=== PATIENT | male | born 1990 | race Caucasian/White ===

== ENCOUNTER 2017-05-12 15:06 | Inpatient (IN) | payer OTHER ==
[~2017-05-12] VITALS: Ht 177.8 cm; Wt 81.6 kg
[2017-05-12 15:21] VITALS: BP 128/88
[2017-05-12] MEDS ORDERED: DEPER500 PO (15:25)
[2017-05-12] MEDS ORDERED: OLAN10TA1 PO (15:25)
--- NOTE | 2017-05-12 15:40 | NUR ---
PT BIBA FROM HOME ON 5150 HOLD. HX SCHIZOPHRENIA AND BIPOLAR DISORDER. HX; SCHIZOPHRENIA, BIPOLAR; DENIES N/V/D; SKIN IS PINK/WARM/DRY; AAOX4 WITH EVEN AND STEADY GAIT; LUNGS CLEAR BL; HR EVEN AND REGULAR; PT DENIES ANY FEVER, CP, SOB, OR COUGH AT THIS TIME; PATIENT STATES PAIN OF 0/10 AT THIS TIME; VSS; PATIENT POSITIONED FOR COMFORT; HOB ELEVATED; BEDRAILS UP X2; BED DOWN. ER MD MADE AWARE OF PT STATUS.
[2017-05-12 15:56] LABS: BASOPHILS # (AUTO) 0.2 K/uL (0.00-0.22); BASOPHILS % (AUTO) 2.3 % (0.0-2.0); EOSINOPHILS # (AUTO) 0.1 K/uL (0-0.4); EOSINOPHILS % (AUTO) 0.7 % (0.0-4.0); HEMATOCRIT 40.8 % (36-52); HEMOGLOBIN 13.6 g/dL (12.0-18.0); LYMPHOCYTES # (AUTO) 1.7 K/uL (2.0-11.5); LYMPHOCYTES % (AUTO) 22.9 % (20.5-51.1); MEAN CORPUSCULAR HEMOGLOBIN 30 pg (27-31); MEAN CORPUSCULAR HGB CONC 33 g/dL (33-37); MEAN CORPUSCULAR VOLUME 89 fL (80-94); MONOCYTES # (AUTO) 0.8 K/uL (0.8-1.0); MONOCYTES % (AUTO) 10.6 % (1.7-9.3); NEUTROPHILS # (AUTO) 4.8 K/uL (1.8-7.7); NEUTROPHILS % (AUTO) 63.5 % (42.2-75.2); PLATELET COUNT (AUTO) 220 K/uL (140-450); RED BLOOD CELL COUNT(AUTO) 4.58 MIL/uL (4.20-6.10); RED CELL DISTRIBUTION WIDTH 12.7 % (11.6-13.7); WHITE BLOOD COUNT (AUTO) 7.6 K/uL (4.8-10.8)
[2017-05-12 15:58] LABS: ANION GAP 13.3 (8-16); CALCIUM 8.2 mg/dL (8.5-10.1); CARBON DIOXIDE 28.4 mmol/L (21-32); CHLORIDE 104 mmol/L (98-107); CREATININE 1.1 mg/dL (0.7-1.3); GFR ARICAN-AMERICAN 103 mL/min (>90); GFR NON ARICAN-AMERICAN 85 mL/min (>90); GLUCOSE 96 mg/dL (74-106); POTASSIUM 3.7 mmol/L (3.5-5.1); SODIUM SERUM 142 mmol/L (136-145); UREA NITROGEN, BLOOD 13 mg/dL (7-18)
[2017-05-12 16:05] LABS: ALANINE AMINOTRANSFERASE 25 U/L (16-63); ALBUMIN 3.9 g/dL (3.4-5.0); ALKALINE PHOSPHATASE 58 U/L (46-116); ASPARTATE AMINOTRANSFERASE 13 U/L (15-37); TOTAL BILIRUBIN 0.5 mg/dL (0.0-1.0); TOTAL PROTEIN, SERUM 6.8 g/dL (6.4-8.2)
[2017-05-12 16:06] LABS: SALICYLATE < 2.8 mg/dL (2.8-20.0)
[2017-05-12 16:07] LABS: ACETAMINOPHEN < 0.5 ug/ml (10-30); ALCOHOL, BLOOD < 3 mg/dL (<3)
[2017-05-12 16:11] LABS: APPEARANCE,URINE CLEAR (CLEAR); BILIRUBIN,URINE NEGATIVE (NEGATIVE); BLOOD, URINE NEGATIVE (NEGATIVE); COLOR,URINE YELLOW (YELLOW); LEUKOCYTE ESTERASE ,URINE NEGATIVE (NEGATIVE); NITRITE, URINE NEGATIVE (NEGATIVE); PH,URINE 6.5 (5.0-9.0); PROTEIN,URINE NEGATIVE (NEGATIVE); UGLUCOSE NEGATIVE (NEGATIVE); UROBILINOGEN,URINE 0.2 EU/dL (0.2 - 1)
[2017-05-12 16:17] LABS: AMPHETAMINE, URINE NEG. ng/ml (NEG <=1000); BARBITURATE, URINE NEG. ng/ml (NEG <=200); BENZODIAZEPINE, URINE NEG. ng/mL (NEG <=200); CANNABINOID, URINE POS. ng/mL (NEG <=50); COCAINE, URINE NEG. ng/mL (NEG <=300); OPIATE, URINE NEG. ng/mL (NEG <=2000); PHENCYCLIDINE SCREEN,URINE NEG. ng/mL (NEG <=25)
[2017-05-12] MEDS ORDERED: ONDANSETRON 4 MG/2 ML VIAL IVP PRN (17:00)
[2017-05-12] MEDS ORDERED: LORazepam 2 MG/ML VIAL IVP PRN (17:00)
[2017-05-12] MEDS ORDERED: ACETAMINOPHEN 325 MG TAB PO PRN (17:00)
--- NOTE | 2017-05-12 17:01 | NUR ---
RN UNAVAILABLE FOR REPORT AT THIS TIME
--- NOTE | 2017-05-12 17:45 | NUR ---
Patient will be admitted to care of DR STOLL. Admited to TELE. Will go to room 107. Belongings list completed. Report to KAZ BELL.
[2017-05-12 18:00] VITALS: BP 140/75
--- NOTE | 2017-05-12 18:00 | NUR ---
PT ARRIVED ON UNIT WITH 2 ER NURSES. PT IS 5150. HAS SOFT WRIST RESTRAINTS. V/S WITHIN NORMAL RANGE. IV R AC 20G SL. SKIN IS INTACT. PT IS ALERT AND ORIENTED. INTRODUCED MYSELF AND UPDATED THE BOARD. MRSA SCREENING DONE. V/S WITHIN NORMAL RANGE. NO ORDERS OF YET. WILL ENDORSE ADMISSION TO MARINE RIGGER.
--- NOTE | 2017-05-12 18:56 | NUR ---
REMOVED WRIST RESTRAINTS. PT HAD TO USE THE BATHROOM. PT HUNGRY. GAVE HIM A HAM SANDWICH AND A CHICKEN SALAD SANDWICH AND 2 JUICE BOXES. PT TOLERATED WELL. SITTER IN THE ROOM.
--- NOTE | 2017-05-12 19:20 | NUR ---
ENDORSED PT TO THE RECLAMATION ENGINEER NURSE AT BEDSIDE FOR CONTINUITY OF CARE. PT IN STABLE CONDITION. NO RESTRAINTS. DR. MARTINEZ CAME TO SEE PT.
--- NOTE | 2017-05-12 19:21 | NUR ---
Admitted from ER TO MED SURGICAL UNIT , with chief complaint of ALOC, THREATENING MOTHER PER REPORT, 5150 ON HOLD 26 y/o ,Male, Suspicious, AWAKE, A/OX4, SEEMS PARANOID BUT ANSWERS QUESTIONS. RESPIRATION EVEN AND UNLABORED. AMBULATORY TO BR. COMFORTABLY SITTING ON CHAIR, WATCHING TV. DENIES PAIN 0/10.oriented to call light, bed, phone,television, bathroom, smoking policy,visiting hours, procedures, ID bracelet on. Belongings list checked. WILL CONTINUE TO MONITOR BEHAVIOR AND ENSURE SAFETY BEING THE 1:1 NURSE SITTER THIS SHIFT.
--- NOTE | 2017-05-12 19:35 | NUR ---
DR. MARTINEZ CAME INSIDE ROOM AND SPOKE WITH PATIENT.
[2017-05-12 20:00] VITALS: BP 136/72
--- NOTE | 2017-05-12 20:00 | NUR ---
Patient's Plan of Care was discussed and reviewed with UTILIZATION MANAGER: ANA ROSA SOLOMON
--- NOTE | 2017-05-12 20:05 | NUR ---
DR. MARTINEZ RECOMMENDS TRANSFER TO IN PATIENT PSYCHE FACILITY WHEN MEDICALLY CLEARED, MEET 5150 CRITERIA AT THIS TIME.
--- NOTE | 2017-05-12 20:30 | NUR ---
SEEMS TO FALL FROM CHAIR, DROWSY. SUGGESTED TO GO BACK TO BED AND REST. OBEYED.
[2017-05-12] MEDS ORDERED: OLANZAPINE PO SCH (21:00)
--- NOTE | 2017-05-12 21:03 | NUR ---
PT CALLED ASKING FOR SLEEPING PILL AND ALSO SHE WANTS HER MEDINA CATHETER OUT. WILL YOVANI SEPULVEDA. Addendum: 05/12/17 at 2112 by Opal Morales RN WRONG DOCUMENTATION
[2017-05-12] MEDS: DIVALPROEX 500 MG TABER PO SCH (21:13)
[2017-05-12] MEDS: OLANZapine 5 MG TAB PO SCH (21:13)
--- NOTE | 2017-05-12 21:13 | NUR ---
DUE PO MEDICATIONS GIVEN, COOPERATIVE.
--- NOTE | 2017-05-12 21:30 | NUR ---
AMBULATED TO BR, BACK TO BEDSIDE TABLE AND DRINK WATER FROM THE PITCHER. STAND FACING DOOR OF BR WITH ONE BLANKET COVERING HIM, SEEMS TO BE LOOKING DOWN FOR 10 MINUTES, ADVISED TO GO TO BED DUE TO MEDICATIONS GIVEN MAY FEEL DIZZY. OBEYED AND LAY DOWN IN BED.
--- NOTE | 2017-05-12 22:10 | NUR ---
AMBULATED TO TO VOID. BACK TO BED AFTER VOIDING. WATCH TV FOR A SHORT TIME, LAUGHED LOUD EVEN THERE'S NOTHING FUNNY.
--- NOTE | 2017-05-12 23:00 | NUR ---
SLEEPING COMFORTABLY IN BED.
--- NOTE | 2017-05-12 23:35 | NUR ---
SUDDENLY WOKE UP FROM SLEEP AND STAND UP. REORIENTED TO HOSPITAL SETTING, ADVISED TO GO BACK TO SLEEP, OBEYED.
[2017-05-13] VITALS: BP 132/68
--- NOTE | 2017-05-13 01:40 | NUR ---
WOKE UP AND STAND BESIDE BED. DENIES ANY NEED. ADVISED TO GO BACK TO BED. COMMENTED ON COLDNESS OF THE ROOM. WARM BLANKET GIVEN. WENT BACK TO SLEEP.
--- NOTE | 2017-05-13 05:40 | NUR ---
WOKE UP EARLY, TEA GIVEN REQUESTED. WATCHING TV.
--- NOTE | 2017-05-13 06:24 | NUR ---
WENT BACK TO BED AND CONTINUE DRINKING TEA WHILE WATCHING TV.
--- NOTE | 2017-05-13 06:44 | NUR ---
STILL WATCHING TV. OCCASIONALLY WITH SHARP LOOKS, OR CLENCHED FIST, OR LAUGH EVEN TV SHOW IS NOT FUNNY. CONDITION REMAIN STABLE, NO SUICIDAL IDEATION NOTED DURING SHIFT, WILL ENDORSED TO AM NURSE FOR CONTINUITY OF CARE.
[2017-05-13 06:51] LABS: HEMATOCRIT 48.2 % (36-52); HEMOGLOBIN 16.1 g/dL (12.0-18.0); MEAN CORPUSCULAR HEMOGLOBIN 30 pg (27-31); MEAN CORPUSCULAR HGB CONC 33 g/dL (33-37); MEAN CORPUSCULAR VOLUME 89 fL (80-94); PLATELET COUNT (AUTO) 252 K/uL (140-450); RED BLOOD CELL COUNT(AUTO) 5.42 MIL/uL (4.20-6.10); RED CELL DISTRIBUTION WIDTH 12.9 % (11.6-13.7); WHITE BLOOD COUNT (AUTO) 7.7 K/uL (4.8-10.8)
--- NOTE | 2017-05-13 07:10 | NUR ---
RECEIVED PATIENT REPORT AT BEDSIDE. PATIENT AWAKE AND ALERT. NO S/S OF DISTRESS NOTED. PATIENT CALM AND COOPERATIVE. PATIENT WITH 1:1 SITTER. WILL CONTINUE TO MONITOR
[2017-05-13 07:24] LABS: EOSINOPHILS % (MANUAL) 1 % (0-4); LYMPHOCYTES % (MANUAL) 44 % (20-46); MONOCYTES % (MANUAL) 13 % (5-12); NEUTROPHILS % (MANUAL) 42 (43-65)
[2017-05-13 07:33] LABS: ANION GAP 13.6 (8-16); CALCIUM 8.8 mg/dL (8.5-10.1); CREATININE 1.1 mg/dL (0.7-1.3); POTASSIUM 3.6 mmol/L (3.5-5.1)
[2017-05-13 07:39] LABS: ALBUMIN 4.5 g/dL (3.4-5.0); MAGNESIUM 2.5 mg/dL (1.8-2.4); TOTAL BILIRUBIN 0.7 mg/dL (0.0-1.0); TOTAL PROTEIN, SERUM 8.1 g/dL (6.4-8.2)
[2017-05-13 08:00] VITALS: BP 143/91
--- NOTE | 2017-05-13 09:14 | NUR ---
PATIENT HAS BEEN SCREENED AND CATEGORIZED LOW NUTRITION RISK. PATIENT WILL BE SEEN WITHIN 7 DAYS OF ADMISSION. 05/19/[address]
[2017-05-13] MEDS: DIVALPROEX 500 MG TABER PO SCH (09:20)
[2017-05-13] MEDS: OLANZapine 5 MG TAB PO SCH (09:21)
--- NOTE | 2017-05-13 09:30 | NUR ---
PATIENT SEEN BY DR LONDON
--- NOTE | 2017-05-13 10:56 | NUR ---
CM NOTE INITIAL REVIEW FAXED TO [facility] / FAX# [phone], ATTN: TONNY #[phone]
--- NOTE | 2017-05-13 13:26 | NUR ---
Social Service Note: I faxed inquiry to [facility] . Per Verito from [facility], patient has been accepted, accepting physician is and can be transfer anytime, rn case management Baoz monteiro.
--- NOTE | 2017-05-13 13:49 | NUR ---
CM NOTE PATIENT TO BE PICKED UP VIA GURNEY BY [facility] GOING TO [facility]. ETA 1600. MADE AWARE THAT PATIENT IS ON 5150 HOLD. MIKEY VYAS MADE AWARE.
--- NOTE | 2017-05-13 15:45 | NUR ---
MADE PATIENT'S MOM NADIR AWARE THAT PATIENT WILL BE TRANSFERRED TO A PSYCH FACILITY
[2017-05-13 16:00] VITALS: BP 150/95
--- NOTE | 2017-05-13 16:10 | NUR ---
PATIENT PICKED UP BY [facility] TO BE TRANSFERRED TO [facility]. IV LINE DISCONTINUED. DISCHARGE INSTRUCTIONS GIVEN. PATIENT VERBALIZED UNDERSTANDING. PATIENT LEFT IN STABLE CONDITION
[2017-05-13] MEDS ORDERED: DIVALPROEX 500 MG TABEC PO SCH (21:00)
== END 2017-05-13 16:10 | disposition designated cancer center or children's hospital (05) | DRG 750 ==
LOC: MED 15:06 → MTU 17:05
PROVIDERS: ADMIT Hospitalist; ATTEND Hospitalist
DX: F25.0 Schizoaffective disorder, bipolar type (principal); F12.10 Cannabis abuse, uncomplicated; F31.9 Bipolar disorder, unspecified
CPT/HCPCS: 36415; 80053; 80305; 81003; 83735; 85025; 87081; 99285; G0480; G0482; J2060

== ENCOUNTER 2018-04-08 09:36 | Emergency (ER) | payer OTHER ==
[~2018-04-08] VITALS: Ht 170.2 cm; Wt 99.3 kg
[~2018-04-08 09:36] MED LIST: DEPER500 PO; OLAN10TA1 PO
[2018-04-08 09:46] VITALS: BP 143/73
--- NOTE | 2018-04-08 09:50 | NUR ---
PT AMULATES TO BED 11
--- NOTE | 2018-04-08 09:51 | NUR ---
REPORT GIVEN TO KAZ BARRIENTOS
--- NOTE | 2018-04-08 09:55 | NUR ---
27YO M TO ER WITH C/O R SIDE CHEST TIGHTNESS NON-RADIATING, WITH SOB, N/V. PT STATS HAVING HIVES X3DAYS AGO WITH NIGHT SWEATS WITH POSSIBLE FEVER AND DRY COUGH . PT STATES THAT STARTING TO WORKOUT AGAIN. O2 SAT AT 100%, LS CLEAR, BS ACTIVE X4, DENIES ANY DIARRHEA. PT REPORTS SMOKING MARIJUANA YESTERDAY. DR SRINIVASAN RAMOS WILL CONTINUE TO MONITOR. WILL CONTINUE TO MONITOR MEDS: DENIES HX: CHILDHOOD ASTHMA
--- NOTE | 2018-04-08 10:00 | NUR ---
Patient being evaluated by physician at bedside.
--- NOTE | 2018-04-08 10:17 | NUR ---
XRAY AT BEDSIDE
[2018-04-08 10:44] VITALS: BP 113/66
--- NOTE | 2018-04-08 10:44 | NUR ---
Patient discharged with v/s stable. Written and verbal after care instructions given and explained. Patient alert, oriented and verbalized understanding of instructions. Ambulatory with steady gait. All questions addressed prior to discharge. ID band removed. Patient advised to follow up with PMD. Rx of AMBIEN 5MG given. Patient educated on indication of medication including possible reaction and side effects. Opportunity to ask questions provided and answered.
== END 2018-04-08 10:44 | disposition home or self-care (01) ==
LOC: MED 09:36
DX: F12.10 Cannabis abuse, uncomplicated (principal); G47.00 Insomnia, unspecified; B34.9 Viral infection, unspecified
CPT/HCPCS: 71045; 93005; 99284; Q0092

== ENCOUNTER 2018-04-22 19:57 | Emergency (ER) | payer OTHER ==
[~2018-04-22] VITALS: Ht 170.2 cm; Wt 98.7 kg
[2018-04-22 20:15] VITALS: BP 134/65
--- NOTE | 2018-04-22 20:21 | NUR ---
PT IN BED 11
--- NOTE | 2018-04-22 20:30 | NUR ---
PATIENT PRESENTS TO ED WITH PT C/O PAIN, DISCOMFORT AND SWELLING IN THE LEFT HAND. PT STATES HE RECIEVED A INSECT BITE WHILE JOGGING YESTERDAY, 04/21/18. ASSESSED REDDNESS AND SWELLING FROM FINGERS TO THE WRIST . DENIES N/V/D; SKIN IS PINK/WARM/DRY; AAOX4 WITH EVEN AND STEADY GAIT; LUNGS CLEAR BL; HR EVEN AND REGULAR; PT DENIES ANY FEVER, CP, SOB, OR COUGH AT THIS TIME; PATIENT STATES PAIN OF 7/10 AT THIS TIME; VSS; PATIENT POSITIONED FOR COMFORT; HOB ELEVATED; BEDRAILS UP X2; BED DOWN. ER MD MADE AWARE OF PT STATUS.PT HAS NO KNOWN ALLERGIES OF BEES OR INSECTS.
--- NOTE | 2018-04-22 22:00 | NUR ---
PATIENT IS RESTING IN BED
--- NOTE | 2018-04-22 22:20 | NUR ---
IS WITH PATIENT
[2018-04-22 22:49] VITALS: BP 126/89
--- NOTE | 2018-04-22 22:49 | NUR ---
Patient discharged with v/s stable. Written and verbal after care instructions given and explained. Patient alert, oriented and verbalized understanding of instructions. Ambulatory with steady gait. All questions addressed prior to discharge. ID band removed. Patient advised to follow up with PMD. Rx of IBUPROFEN, KEFLEX,PEPCID,PREDNISONE given. Patient educated on indication of medication including possible reaction and side effects. Opportunity to ask questions provided and answered
== END 2018-04-22 22:49 | disposition home or self-care (01) ==
LOC: MED 19:57
DX: T63.481A Toxic effect of venom of other arthropod, accidental (unintentional), initial encounter (principal); L03.114 Cellulitis of left upper limb; Z79.899 Other long term (current) drug therapy; Y92.89 Other specified places as the place of occurrence of the external cause
CPT/HCPCS: 99283

== ENCOUNTER 2020-01-16 23:55 | Emergency (ER) | payer MEDICAID, OTHER ==
[~2020-01-16] VITALS: Ht 170.2 cm; Wt 99.8 kg
--- NOTE | 2020-01-17 00:02 | NUR ---
PT [facility] B[facility]. TAKEN TO BED 8
[2020-01-17 00:03] VITALS: BP 153/69
--- NOTE | 2020-01-17 00:10 | NUR ---
Dr. Rojas examining patient.
[2020-01-17] MEDS ORDERED: LORazepam 2 MG/ML VIAL IM ONE (00:15)
[2020-01-17 00:30] LABS: BARBITURATE, URINE NEGATIVE ng/ml (NEG <=200); BENZODIAZEPINE, URINE NEGATIVE ng/mL (NEG <=200); CANNABINOID, URINE POSITIVE ng/mL (NEG <=50); COCAINE, URINE NEGATIVE ng/mL (NEG <=300); OPIATE, URINE NEGATIVE ng/mL (NEG <=2000); PHENCYCLIDINE SCREEN,URINE NEGATIVE ng/mL (NEG <=25)
--- NOTE | 2020-01-17 00:47 | NUR ---
29 YO MALE BIBA FOR AUDITORY HALLUCINATIONS. PT SMOKED MARIJUANA AND DRANK BEER. PT INITIALLY DID NOT WANT TO BE SEEN, BUT DECIDED TO STAY. PT VERY ANXIOUS AND NOT ABLE TO SIT STILL. ORALIA ORDERED ATIVAN AND IT WAS ADMINISTERED VIA IM.
--- NOTE | 2020-01-17 00:51 | NUR ---
MOM CALLED TO COME GET PT.
[2020-01-17 01:12] VITALS: BP 133/69
--- NOTE | 2020-01-17 01:13 | NUR ---
Patient discharged with v/s stable. Written and verbal after care instructions given and explained. Patient verbalized understanding. Ambulatory with steady gait. All questions addressed prior to discharge. Advised to follow up with PMD.
== END 2020-01-17 01:13 | disposition home or self-care (01) ==
LOC: MED 23:55
DX: F41.9 Anxiety disorder, unspecified (principal); F20.9 Schizophrenia, unspecified; F12.90 Cannabis use, unspecified, uncomplicated; Z79.899 Other long term (current) drug therapy
CPT/HCPCS: 80305; 96372; 99283; J2060

== ENCOUNTER 2020-01-21 14:55 | Inpatient (IN) | payer MEDICAID ==
[~2020-01-21] VITALS: Ht 172.7 cm; Wt 104.3 kg
[2020-01-21 14:56] VITALS: BP 164/86
--- NOTE | 2020-01-21 15:00 | NUR ---
PT DISPLAYING HYPERSEXUAL BEHAVIOR WHILE OBTAINING VITALS, STATED TO ME "GO AHEAD, SUCK MY JAGDEEP". PT INFORMED THIS BEHAVIOR IS NOT ACCEPTABLE.
--- NOTE | 2020-01-21 15:18 | NUR ---
29/M DISPLAYING HYPERVERBAL, PARANOIA BEHAVIORS. WHEN AT BEDSIDE ASKING PT WHAT AND WHO BROUGHT HIM INTO ER TODAY, PT IMMEDIATELY CLOSED HIS EYES AND STOPPED SPEAKING. DOES NOT ANSWER ANY QUESTIONS AT THIS TIME. HOWEVER ONCE I LEFT BEDSIDE, PT RESUMED HYPERVERBAL BEHAVIOR. UNABLE TO OBTAIN ANY INFORMATION FROM PATIENT NOW EXECEPT INFORMATION FROM DENTAL SERVICE CHIEF (WHICH WAS OBTAINED FROM EMS) BELOW: 29/M BROUGHT IN BY EMS FROM [facility] PT PULLING DAVIS OUT FROM PRIVATE RESIDENCE FRONT LAWN. [facility] PD STATED PT C/O THROAT PAIN --EMS STATED PT WITH BIZZARE BEHAVIOR RANTING WANTS EVERYONE AND HYPER SEXUAL BEHAVIOR PT ADMITS TO VISUAL/AUDITORY HALLUCINATIONS DENIES HOMICIDAL/SUICIDAL IDEATIONS HX---DENIES RX---DENIES
[2020-01-21 15:31] LABS: BASOPHILS % (AUTO) 0.3 % (0.0-2.0); EOSINOPHILS # (AUTO) 0.1 K/uL (0-0.4); EOSINOPHILS % (AUTO) 1.2 % (0.0-4.0); HEMOGLOBIN 14.3 g/dL (12.0-18.0); LYMPHOCYTES # (AUTO) 2.3 K/uL (2.0-11.5); LYMPHOCYTES % (AUTO) 28.6 % (20.5-51.1); MEAN CORPUSCULAR HEMOGLOBIN 30 pg (27-31); MEAN CORPUSCULAR HGB CONC 33 g/dL (33-37); MEAN CORPUSCULAR VOLUME 90.7 fL (80-94); MONOCYTES # (AUTO) 0.8 K/uL (0.8-1.0); MONOCYTES % (AUTO) 9.8 % (1.7-9.3); NEUTROPHILS # (AUTO) 4.8 K/uL (1.8-7.7); NEUTROPHILS % (AUTO) 60.1 % (42.2-75.2); PLATELET COUNT (AUTO) 259 K/uL (140-450); RED BLOOD CELL COUNT(AUTO) 4.74 MIL/uL (4.20-6.10); RED CELL DISTRIBUTION WIDTH 14.1 % (11.6-13.7); WHITE BLOOD COUNT (AUTO) 8.1 K/uL (4.8-10.8)
--- NOTE | 2020-01-21 15:32 | NUR ---
PT DISPLAYING SEXUAL BEHAVIORS WHEN ATTEMPTING TO PROVIDE URINAL TO PT FOR URINE SAMPLE. Addendum: 01/21/20 at 1639 by DONTRELL WHEN PROVIDING PT WITH URINAL FOR URINE SAMPLE COLLECTION, PT GRABBED MY HAND AND ATTEMPTED TO MOVE IT TOWARDS HIS PENIS.
--- NOTE | 2020-01-21 15:33 | NUR ---
PT CONTINUES TO HAVE CONFUSED AND EXCESSIVE SPEECH. STATES "ME AND GIOVANY MAURICIO ARE THE SAME PERSON. SO IF GIOVANY MARTÍNEZ THINKS YOU'RE STUPID, THEN I THINK YOU'RE STUPID."
--- NOTE | 2020-01-21 15:38 | NUR ---
DR FUNES EVALUATING PT AT BEDSIDE
[2020-01-21 15:44] LABS: PROTHROMBIN TIME 9.9 secs (10.8-13.4)
--- NOTE | 2020-01-21 15:45 | NUR ---
PT YELLS "WHAT THE FUCK ARE YOU TALKING ABOUT" CONTINUOUSLY.
[2020-01-21 15:47] LABS: ACETAMINOPHEN < 0.5 ug/ml (10-30); ANION GAP 13.2 (8-16); ASPARTATE AMINOTRANSFERASE 21 U/L (15-37); CARBON DIOXIDE 29.4 mmol/L (21-32); CHLORIDE 107 mmol/L (98-107); CREATININE 1.3 mg/dL (0.6-1.3); GFR ARICAN-AMERICAN 83 mL/min (>90); GLUCOSE 96 mg/dL (74-106); POTASSIUM 3.6 mmol/L (3.5-5.1); SALICYLATE < 2.8 mg/dL (2.8-20.0); SODIUM SERUM 146 mmol/L (136-145); TOTAL BILIRUBIN 0.4 mg/dL (0.0-1.0); UREA NITROGEN, BLOOD 12 mg/dL (7-18)
[2020-01-21] MEDS ORDERED: ZIPRASIDONE MESYLATE 20 MG/ML VIAL IM ONE (16:05)
--- NOTE | 2020-01-21 16:08 | NUR ---
PER DR FUNES, ADMIN [place] IM AFTER PD HERE TO EVALUATE PT
[2020-01-21] MEDS ORDERED: WATER STERILE 10 ML MC ONE (16:22)
--- NOTE | 2020-01-21 16:36 | NUR ---
[place] PD AT BEDSIDE
--- NOTE | 2020-01-21 16:51 | NUR ---
5150 HOLD DANGER TO OTHERS WRITTEN BY [facility] DESIST AT 1644 TODAY.
--- NOTE | 2020-01-21 16:56 | NUR ---
PER DR FUNES, WILL WAIT FOR ONSET OF ACTION OF DANNY. OKAY TO DELAY URINE COLLECTION AT THIS TIME.
--- NOTE | 2020-01-21 17:03 | NUR ---
PT STILL WITH EXCESSIVE AND CONFUSED SPEECH
[2020-01-21] MEDS ORDERED: LORazepam 2 MG/ML VIAL IVP ONE (17:05)
[2020-01-21] MEDS ORDERED: LORazepam 2 MG/ML VIAL ONE (17:06)
[2020-01-21] MEDS ORDERED: HALOPERIDOL IM 5 MG/ML VIAL ONE (17:20)
--- NOTE | 2020-01-21 17:23 | NUR ---
PER DR MARIN HAONG TO ADMINISTER THE ORDERED ATIVAN 1MG IM (1723 ORDER TIME) VIA IVP INSTEAD.
[2020-01-21] MEDS ORDERED: HALOPERIDOL IM 5 MG/ML VIAL IM ONE (17:25)
[2020-01-21] MEDS ORDERED: LORazepam 2 MG/ML VIAL IM ONE (17:25)
--- NOTE | 2020-01-21 17:43 | NUR ---
URINE SAMPLE COLLECTED VIA STRAIGHT CATH BY KAZ GLOVER
[2020-01-21 17:49] LABS: APPEARANCE,URINE CLEAR (CLEAR); BILIRUBIN,URINE NEGATIVE (NEGATIVE); BLOOD, URINE 2+ (NEGATIVE); COLOR,URINE YELLOW (YELLOW); LEUKOCYTE ESTERASE ,URINE NEGATIVE (NEGATIVE); NITRITE, URINE NEGATIVE (NEGATIVE); UGLUCOSE NEGATIVE (NEGATIVE)
[2020-01-21 18:02] LABS: BARBITURATE, URINE NEGATIVE ng/ml (NEG <=200); BENZODIAZEPINE, URINE NEGATIVE ng/mL (NEG <=200); CANNABINOID, URINE POSITIVE ng/mL (NEG <=50); COCAINE, URINE NEGATIVE ng/mL (NEG <=300); OPIATE, URINE NEGATIVE ng/mL (NEG <=2000); PHENCYCLIDINE SCREEN,URINE NEGATIVE ng/mL (NEG <=25)
--- NOTE | 2020-01-21 18:17 | NUR ---
PT IN BED, WITH LIGHT SNORING, NAD.
[2020-01-21 18:48] LABS: RBC,URINE 20-50 /HPF (0-5)
[2020-01-21 18:49] LABS: WBC,URINE 0-5 /HPF (0-5)
--- NOTE | 2020-01-21 19:10 | NUR ---
PT SNORING; VSS; SITTER AT BEDSIDE; WILL CONTINUE TO MONITOR
--- NOTE | 2020-01-21 19:10 | NUR ---
REPORT RECEIVED FROM KAZ MEZA
--- NOTE | 2020-01-21 19:10 | NUR ---
REPORT TO SHARA MCCURDY. TRANSFER OF CARE AT THIS TIME.
--- NOTE | 2020-01-21 20:00 | NUR ---
VSS SITTER AT BEDSIDE PT SLEEPING BUT AROUSABLE; WILL CONTINUE TO MONITOR
--- NOTE | 2020-01-21 21:00 | NUR ---
PT SLEEPING EASILY AROUSABLE NO NEEDS AT THIS TIME SITTER AT BEDSIDE WILL CONTINUE TO MONITOR
--- NOTE | 2020-01-21 21:46 | NUR ---
At this time there are no vacancy at the facilities Packet were faxed to. Dejah Valencia [facility] will notify ER when placement is found.
--- NOTE | 2020-01-21 22:00 | NUR ---
PT REFUSING VITALS TO BE TAKEN; SLEEPING BUT EASILY AROUSABLE. SITTER AT BEDSIDE. NO NEEDS AT THIS TIME. WILL CONTINUE TO MONITOR.
[2020-01-21] MEDS ORDERED: NACL 0.45% 1,000 ML IV SCH (22:41)
[2020-01-21] MEDS ORDERED: ONDANSETRON 4 MG/2 ML VIAL IM/IVP PRN (22:45)
[2020-01-21] MEDS ORDERED: HYDROcodone/APAP 5/325 MG 1 TAB TAB PO PRN (22:45)
[2020-01-21] MEDS ORDERED: ACETAMINOPHEN 325 MG TAB PO PRN (22:45)
[2020-01-21] MEDS ORDERED: MORPHINE SULFATE 2 MG/ML SYR IVP PRN (22:45)
[2020-01-21] MEDS ORDERED: DOCUSATE SODIUM 100 MG GELCAP PO PRN (22:45)
--- NOTE | 2020-01-21 23:00 | NUR ---
PT REFUSING VITAL SIGNS. AGGRESSIVE AND COMBATIVE. PULSE OX WNL. AWARE. WILL CONTINUE TO MONITOR.
[2020-01-21 23:05] VITALS: BP 151/64
--- NOTE | 2020-01-21 23:05 | NUR ---
PATIENT ARRIVED FROM ED VIA GURNEY. CC SUICIDAL IDEATION. AMBULATORY. BREATHING EVEN AND UNLABORED. VITAL SIGNS STABLE. ARRIVED WITH IV ACCESS INSERTED ON 20. DENIES ANY PAIN. UNABLE TO OBTAIN HISTORY DUE TO DROWSINESS. SAFETY MEASURES IN PLACE. SITTER PRESENT, BED IN LOW POSITION, SIDE RAILS RAISED. PLAN OF CARE UP TO DATE. WILL CONTINUE TO MONITOR.
--- NOTE | 2020-01-21 23:09 | NUR ---
Patient will be admitted to care of [facility]. [facility]. Will go to room 109A. Belongings list completed. Report to KAZ SHAHID.
[2020-01-21 23:13] LABS: CHOL/HDL RATIO 3.7 (1-4.5); MAGNESIUM 2.3 mg/dL (1.8-2.4); PHOSPHORUS 4.1 mg/dL (2.5-4.9); THYROID STIMULATING HORMONE 3.81 uIU/mL (0.34-3.74)
--- NOTE | 2020-01-22 02:03 | NUR ---
ROUNDS DONE. PATIENT IN BED SLEEPING. SITTER PRESENT AT BEDSIDE. IVF INFUSING WELL. RESPIRATIONS EVEN AND UNLABORED. NO SIGNS OF DISTRESS NOTED. KEPT COMFORTABLE. WILL CONTINUE TO MONITOR.
--- NOTE | 2020-01-22 05:08 | NUR ---
PATIENT WOKE UP. REQUESTED FOR FOOD. SANDWICH AND JUICE PROVIDED.
[2020-01-22 06:13] LABS: BASOPHILS % (AUTO) 0.4 % (0.0-2.0); EOSINOPHILS # (AUTO) 0.2 K/uL (0-0.4); EOSINOPHILS % (AUTO) 2.5 % (0.0-4.0); HEMATOCRIT 43.6 % (36-52); HEMOGLOBIN 14.6 g/dL (12.0-18.0); LYMPHOCYTES # (AUTO) 1.5 K/uL (2.0-11.5); LYMPHOCYTES % (AUTO) 17.8 % (20.5-51.1); MEAN CORPUSCULAR HEMOGLOBIN 31 pg (27-31); MEAN CORPUSCULAR HGB CONC 34 g/dL (33-37); MONOCYTES # (AUTO) 0.8 K/uL (0.8-1.0); MONOCYTES % (AUTO) 9.3 % (1.7-9.3); NEUTROPHILS # (AUTO) 5.8 K/uL (1.8-7.7); PLATELET COUNT (AUTO) 235 K/uL (140-450); RED BLOOD CELL COUNT(AUTO) 4.74 MIL/uL (4.20-6.10); WHITE BLOOD COUNT (AUTO) 8.2 K/uL (4.8-10.8)
--- NOTE | 2020-01-22 06:15 | NUR ---
PATIENT BEING VERBALLY AGGRESSIVE VERBALIZING DESIRE TO GO HOME. PATIENT TOOK IV OUT. AND REFUSING TO WEAR GOWN. TAUNTING STAFF. SECURITY AT BEDSIDE. DR. PABLO CALLED. WILL CONTINUE TO MONITOR
[2020-01-22] MEDS ORDERED: LORazepam 2 MG/ML VIAL IVP ONE (06:20)
[2020-01-22] MEDS ORDERED: HALOPERIDOL IM 5 MG/ML VIAL IM PRN ×2 (06:20→06:25)
[2020-01-22 06:29] LABS: ANION GAP 13.8 (8-16); CREATININE 1.1 mg/dL (0.6-1.3); POTASSIUM 3.8 mmol/L (3.5-5.1)
--- NOTE | 2020-01-22 06:48 | NUR ---
PATIENT IN BED. CALMED DOWN. SITTER AT BEDSIDE. WILL CONTINUE TO MONITOR.
--- NOTE | 2020-01-22 07:10 | NUR ---
ENDORSED TO DAYSHIFT NURSE. PATIENT SLEEPING. NO DISTRESS NOTED. PATIENT STABLE.
--- NOTE | 2020-01-22 07:11 | NUR ---
RECEIVED REPORT FROM DAY SHIFT NURSE. RECEIVED PT IN BED, ASLEEP. NO APPARENT DISTRESS, NO GRIMACING, NO SOB. SITTER AT BEDSIDE. FALL PRECAUTIONS IN PLACE. BED IN LOW POSITION, SIDE RAILS RAISED. PATIENT KEPT COMFORTABLE. WILL CONTINUE TO MONITOR.
--- NOTE | 2020-01-22 07:15 | NUR ---
Received call from Ariela Curry (mother) stating she wants to drop off pt's medications. Med recon reviewed; added risperidone 2mg bid, and hydroxyzine pamoate 50mg Q6h prn. Informed mother that these meds are formulary from in-house pharmacy and to take meds home. Mother also requesting to have psychiatrist call her ([phone]). Will notify Dr Prabhakar of family request.
[2020-01-22] MEDS ORDERED: HYDR25CA1 PO (07:30)
[2020-01-22] MEDS ORDERED: RISP0.5T3 PO (07:30)
--- NOTE | 2020-01-22 07:43 | NUR ---
Received change of shift report. Will continue to keep facility updated with any information regarding bed placement
[2020-01-22 08:02] VITALS: BP 133/57
--- NOTE | 2020-01-22 08:20 | NUR ---
Patient restless and agitated, pacing around unit. Security personnel paged. Explained to patient that he's on a 5150 hold awaiting psychiatric consult. Pt states he feels fine and wants to go home. contract officer monitoring pt. Addendum: 01/22/20 at 0852 by Aubrie Allen RN Dr Byrd notified of pt behavior. Per Dr Byrd, administer Lorazepam 2mg and Haldol 5mg IM.
[2020-01-22] MEDS ORDERED: LORazepam 2 MG/ML VIAL ONE (08:23)
--- NOTE | 2020-01-22 08:23 | NUR ---
PATIENT HAS BEEN SCREENED AND CATEGORIZED LOW NUTRITION RISK. PATIENT WILL BE SEEN WITHIN 7 DAYS OF ADMISSION. 01/28/[address]
[2020-01-22] MEDS ORDERED: LORazepam 2 MG/ML VIAL IM/IVP SCH (08:30)
--- NOTE | 2020-01-22 08:30 | NUR ---
UNABLE TO DO MORNING ASSESSMENT AND TEACHING DUE TO PT PACING AROUND AND AGGRESSIVE BEHAVIOR. SITTER AT BED SIDE. WILL CONT TO MONITOR
--- NOTE | 2020-01-22 08:30 | NUR ---
[facility] NINO NOTIFIED THAT PT WALKED OUT OF HOSPITAL WHILE ON 5150 HOLD. NOTIFIED THEM OF PT'S CURRENT LOCATION, HEADING, AND PHYSICAL APPEARANCE. Addendum: 01/22/20 at 0926 by Rajesh Darling RN TIME OF OCCURRENCE IS AT 0840
--- NOTE | 2020-01-22 08:40 | NUR ---
Pt went through emergency exit and walked out into the street. Pt threw his hear monitor on the ground and turned left into [address]. Unable to catch up to patient. Basilia NINO was paged.
--- NOTE | 2020-01-22 08:48 | NUR ---
Ariela (mother) notified of patient elopement, and reassured that [place] PD has been notified. Mother verbalized understanding without further concerns.
[2020-01-22] MEDS ORDERED: DIVALPROEX 500 MG TABEC PO SCH (09:00)
[2020-01-22] MEDS ORDERED: OLANZapine 5 MG TAB PO SCH (09:00)
[2020-01-22] MEDS ORDERED: DIVA-58 PO (09:53)
== END 2020-01-22 08:40 | disposition left against medical advice (07) | DRG 812 ==
LOC: MED 14:55 → MTU 22:50
PROVIDERS: ADMIT General Practice; ATTEND General Practice
DX: T40.7X1A Poisoning by cannabis (derivatives), accidental (unintentional), initial encounter (principal); G92 Toxic encephalopathy; E87.0 Hyperosmolality and hypernatremia; F20.9 Schizophrenia, unspecified; R31.9 Hematuria, unspecified; F31.9 Bipolar disorder, unspecified; E02 Subclinical iodine-deficiency hypothyroidism; Z83.3 Family history of diabetes mellitus; Z82.49 Family history of ischemic heart disease and other diseases of the circulatory system; Z91.14 Patient's other noncompliance with medication regimen; Z71.51 Drug abuse counseling and surveillance of drug abuser; Y92.89 Other specified places as the place of occurrence of the external cause
CPT/HCPCS: 36415; 71045; 80048; 80053; 80305; 81001; 83690; 83735; 84100; 84443; 85025; 85610; 87081; 99285; C1758; G0480; G0482; J1630; J2060; J3486; Q0092

== ENCOUNTER 2020-01-22 08:59 | Inpatient (IN) | payer MEDICAID ==
[~2020-01-22] VITALS: Ht 175.3 cm; Wt 83.9 kg
[~2020-01-22 08:59] MED LIST changes: +HYDR25CA1 PO; +RISP0.5T3 PO
--- NOTE | 2020-01-22 09:08 | NUR ---
Dr Garcia evaluating pt at bedside.
[2020-01-22 09:15] VITALS: BP 117/90
[2020-01-22] MEDS: NACL 0.9% 1,000 ML IV SCH (09:16)
[2020-01-22] MEDS ORDERED: MORPHINE SULFATE 2 MG/ML SYR IVP PRN (09:20)
[2020-01-22] MEDS ORDERED: HYDROcodone/APAP 5/325 MG 1 TAB TAB PO PRN (09:20)
[2020-01-22] MEDS ORDERED: ACETAMINOPHEN 325 MG TAB PO PRN (09:20)
[2020-01-22] MEDS ORDERED: ONDANSETRON 4 MG/2 ML VIAL IM/IVP PRN (09:20)
[2020-01-22] MEDS ORDERED: DOCUSATE SODIUM 100 MG GELCAP PO PRN (09:20)
[2020-01-22] MEDS ORDERED: ZOLPIDEM 5 MG TAB PO PRN (09:20)
--- NOTE | 2020-01-22 09:24 | NUR ---
IBA IN 4 POINT RESTRAINTS AFTER LEAVING [facility] THIS MORNING. PT IS COOPERATIVE. PT EXHIBITS PARANOIA BUT IS COMPLYING WITH STAFF REQUESTS. RESTRAINTS REMOVED AFTERT TRANSFER TO BED 5. PT CURRENTLY ON HOLD BY RAFAL NINO.PT AWAKE , ALERT, AFIBRILE , AMBULATORY WITH STEADY GAIT.SCE , CBS BLF , FLAT SOFT NABS NONTENDER.
[2020-01-22 09:30] LABS: APPEARANCE,URINE CLEAR (CLEAR); BILIRUBIN,URINE NEGATIVE (NEGATIVE); BLOOD, URINE TRACE-I (NEGATIVE); COLOR,URINE YELLOW (YELLOW); LEUKOCYTE ESTERASE ,URINE NEGATIVE (NEGATIVE); NITRITE, URINE NEGATIVE (NEGATIVE); PH,URINE 6.5 (5.0-9.0); UGLUCOSE NEGATIVE (NEGATIVE)
--- NOTE | 2020-01-22 09:40 | NUR ---
ADMITTED 29 Y/O MALE FROM HOME WITH ADMITTING DX OF PSYCHOSIS. WITH HX SCHIZOPHRENIA AND BIPOLAR DISORDER. WITH IV ON R AC 20G. AOX4, VERBAL, AMBULATORY, SKIN INTACT, ON ROOM AIR, NO C/O PAIN, NO SOB, AGITATED, AND PACING AROUND THE ROOM. MD NOTIFIED. SITTER AT BEDSIDE. BED IN LOW POSITION. WILL CONT TO MONITOR
[2020-01-22 09:41] LABS: RBC,URINE 0-5 /HPF (0-5); WBC,URINE 0-5 /HPF (0-5)
[2020-01-22 09:42] LABS: BARBITURATE, URINE NEG. ng/ml (NEG <=200); BENZODIAZEPINE, URINE NEG. ng/mL (NEG <=200); CANNABINOID, URINE POS. ng/mL (NEG <=50); COCAINE, URINE NEG. ng/mL (NEG <=300); OPIATE, URINE NEG. ng/mL (NEG <=2000); PHENCYCLIDINE SCREEN,URINE NEG. ng/mL (NEG <=25)
--- NOTE | 2020-01-22 09:46 | NUR ---
Patient will be admitted to care of DR PABLO. Admited to ms. Will go to room 109 a. Belongings list completed. Report to connie drake.
[2020-01-22 09:53] LABS: ALBUMIN 3.5 g/dL (3.4-5.0); ANION GAP 11.9 (8-16); CHOL/HDL RATIO 3.8 (1-4.5); CREATININE 1.1 mg/dL (0.6-1.3); MAGNESIUM 2.5 mg/dL (1.8-2.4); PHOSPHORUS 3.7 mg/dL (2.5-4.9); POTASSIUM 3.9 mmol/L (3.5-5.1); THYROID STIMULATING HORMONE 2.42 uIU/mL (0.34-3.74); TOTAL BILIRUBIN 0.7 mg/dL (0.0-1.0)
[2020-01-22 09:53] LABS: PROTHROMBIN TIME 10.2 secs (10.8-13.4)
[2020-01-22] MEDS ORDERED: DIVA-58 PO (09:53)
[2020-01-22] MEDS ORDERED: HALOPERIDOL IM 5 MG/ML VIAL ONE ×2 (09:55→16:39)
[2020-01-22] MEDS ORDERED: HALOPERIDOL IM 5 MG/ML VIAL IM SCH ×2 (10:00→17:00)
--- NOTE | 2020-01-22 10:00 | NUR ---
DISCHARGE PLANNING: THIS IS A 29 Y/O MALE PATIENT FROM HOME, WHO CAME IN DUE TO PSYCHOSIS. PAST MEDICAL HISTORY INCLUDE PSYCHIATRIC DISORDER BIPOLAR AND SCHIZOPHRENIA. INITIAL DIAGNOSIS OF PSYCHOSIS. PATIENT ELOPED FROM THE HOSPITAL YESTERDAY AND CAME BACK TO THE ED TODAY. PSYCHE CONSULT IN PLACE. DC PLAN PENDING ON PSYCHE 'S RECOMMENDATIONS. WILL FOLLOW UP.
--- NOTE | 2020-01-22 10:08 | NUR ---
HALDOL IM GIVEN ORDERED. GIVEN AT R DELTOID.
[2020-01-22] MEDS ORDERED: hydrOXYzine PAMOATE 25 MG CAP PO PRN (10:15)
--- NOTE | 2020-01-22 10:51 | NUR ---
Core Oven Tender Note: Basic Screen: Yes High Risk DC Screen [address]: AL Castrejon Relationship: MOTHER Pre-Admission Living Arrangements: Lives with Other Prior ADL Independent Current Home Health Name/Tel: N/A Current DME/02 Name/Tel: N/A Current Hospice Name/Tel: N/A Current Dialysis Name/Tel: N/A Healthcare Decision Maker: Patient Advance Directive No Physician Orders for Life Sustaining Treatment Form No Patient/Family Have Educational Needs No Information Taught: Community Resources Person Taught: Patient Teaching Tools: Community Resources Verbal Factors Affecting Learning: None Participation Level: Active Evaluation: Verbalizes Understanding Needs Additional Education: No Discipline: Case Mgt/Social Svcs Tentative Discharge Plan/Destination: No Needs Identified Will require assistance post discharge: No Referred to Facing Slitter: No Tentative Discharge Plan Summary: Patient is a 29-year-old male admitted for suicidal ideation. Patient has PMHX of seizures, bipolar disorder, and schizophrenia. Patient was admitted from home where he lives with his parents. Patient stated that he no longer feels suicidal and believes that his episode was due to his lack of medication and being under the influence of marijuana. Patient denies AH/VH. SW assessed for current suicidal/homicidal risks, but none were apparent. SW inquired if patient was recieving mental health resources but patient stated that he is currently arranging his mental health resources with [facility]. Patient refused mental health resources and substance abuse resources. Tentative discharge plan is for patient to return home. No further needs identified. Signature: DANIELLA Moreno Date: Jan 22, 2020 Time: 10:49
[2020-01-22] MEDS: LORazepam 2 MG/ML VIAL IM/IVP PRN ×2 (10:58→16:55)
--- NOTE | 2020-01-22 10:58 | NUR ---
STILL WITH EPISODES OF PACING AROUND AND RESTLESS BEHAVIOR. ATIVAN IVP PUSH GIVEN ORDERED
[2020-01-22 12:00] VITALS: BP 109/54
--- NOTE | 2020-01-22 13:07 | NUR ---
PATIENT HAS BEEN SCREENED AND CATEGORIZED LOW NUTRITION RISK. PATIENT WILL BE SEEN WITHIN 7 DAYS OF ADMISSION. 01/28/[address]
--- NOTE | 2020-01-22 13:30 | NUR ---
PT TOOK OFF MARINE MACHINIST. DR. LEWIS NOTIFIED, NO NEW ORDERS
--- NOTE | 2020-01-22 13:59 | NUR ---
Left message for LUCRETIA Franco, for call back in regards to clarification of disposition and medical clearance.
--- NOTE | 2020-01-22 14:24 | NUR ---
RECEIVED CALL FROM [facility] REQUESTING A COPY OF 1022 LIOL. FAXED COPY TO [phone]
--- NOTE | 2020-01-22 14:40 | NUR ---
PT REMOVED IV, LUMEN INTACT. MINIMAL BLEEDING NOTED, DRESSING APPLIED. NO FURTHER INJURY NOTED
--- NOTE | 2020-01-22 14:47 | NUR ---
[facility] has received referral for inpatient psych placement. Referral has been faxed to the following facilities for review: [facility], [facility], [facility], [facility], [facility], [facility]. [facility] will continue to update notes and follow up with facilities for bed availability.
[2020-01-22] MEDS ORDERED: LORazepam 1 MG TAB PO PRN (16:20)
[2020-01-22] MEDS ORDERED: diphenhydrAMINE 50 MG/ML VIAL ONE (16:39)
--- NOTE | 2020-01-22 16:55 | NUR ---
Pt agitated, pacing in room and demanding to let him go home. Deescalation strategies utilized: explained reason for 5150 hold, offered snacks, reoriented to present, coached on relaxation techniques. Pt remains agitated. Pt agreed to receive Lorazepam 1mg IM; administered to left deltoid. Pt remains agitated and started squaring up in front of staff and angrily demands to be allowed to go home. Aurelio ball pagemaxine. Dr Prabhakar in unit with order to give Benadryl 50mg IM, Haldol 5mg IM, and another Lorazepam 1mg IM. RN was able to track and field coach patient into lying back down in bed and receive IM medications. All meds administered. Pt remains lying in bed, quiet, no signs of distress. Will cont to monitor. Sitter at bedside at all times. Addendum: 01/22/20 at 1746 by Aubrie Allen RN Addendum: Lorazepam 2mg IM administered per Dr Prabhakar.
[2020-01-22] MEDS ORDERED: LORazepam 2 MG/ML VIAL IM SCH (17:00)
[2020-01-22] MEDS ORDERED: diphenhydrAMINE 50 MG/ML VIAL IM SCH (17:00)
--- NOTE | 2020-01-22 17:20 | NUR ---
Pt asleep in bed, respirations even & nonlabored, FLACC 0. Noted pt trying to raise head up every few minutes. No signs of distress. Sitter at bedside for continuous monitoring.
--- NOTE | 2020-01-22 18:09 | NUR ---
Report endorsed to next shift
--- NOTE | 2020-01-22 19:05 | NUR ---
ENDORSED TO DATA SECURITY ANALYST NURSE FOR CONTINUITY OF CARE. PT IN STABLE CONDITION
--- NOTE | 2020-01-22 19:06 | NUR ---
RECD. RESTING IN BED ASLEEP, WAKES UP EASILY WHEN NAME CALLED, A/OX4. RESPIRATION EVEN AND UNLABORED. STATED STILL HEARING VOICES. NO IV LINE. PLAN OF CARE FOR THE SHIFT DISCUSSED. JUST NODS. DENIES PAIN 0/10. REQUESTED FOR SNACK. AFTER EATING WENT BACK TO SLEEP. 1:1 SITTER AT THE DOOR MONITORING PATIENT.
--- NOTE | 2020-01-22 20:00 | NUR ---
Patient's Plan of Care was discussed and reviewed with CHIEF REVENUE OFFICER: ANA ROSA SOLOMON
--- NOTE | 2020-01-22 20:06 | NUR ---
AWAKE, GETS OUT OF BED, WALKS TO THE DOOR. WITH ANXIETY, AGITATED. MEDICATED WITH ATIVAN AND VISTARIL PER MD ORDER.
--- NOTE | 2020-01-22 20:45 | NUR ---
NO AGITATION, SLEEPING COMFORTABLY IN BED.
--- NOTE | 2020-01-22 20:56 | NUR ---
WOKE UP AND STATED HE WANTS TO GO HOME BUT EYES ARE CLOSED. WENT TO BR AND VOIDED. INSTRUCTED BY SITTER TO GO BACK TO SLEEP. OBEYED INSTRUCTED.
[2020-01-22] MEDS ORDERED: clonazePAM 0.5 MG TAB PO SCH (21:00)
[2020-01-22] MEDS ORDERED: traZODone 50 MG TAB PO SCH (21:00)
[2020-01-22] MEDS ORDERED: risperiDONE 1 MG TAB PO SCH (21:00)
--- NOTE | 2020-01-22 21:00 | NUR ---
AWAKE, REFUSED NEW IV INSERTION.
--- NOTE | 2020-01-22 21:15 | NUR ---
WOKE UP AND GET OUT OF BED, GO TO THE DOOR, DROWSY, AND ASKED IF HE CAN GO HOME. ADVISED TO GO BACK TO SLEEP AND MEDICATION WILL BE GIVEN LATER. AGREED, WENT BACK TO SLEEP AGAIN.
--- NOTE | 2020-01-22 21:30 | NUR ---
SNORING IN BED, NO DISTRESS NOTED.
[2020-01-22] MEDS: OLANZapine 5 MG TAB PO SCH (21:45)
[2020-01-22] MEDS: DIVALPROEX 500 MG TABEC PO SCH (21:45)
--- NOTE | 2020-01-22 22:47 | NUR ---
[facility] still aware of patient. Will continue to seek placement for inpatient psych
--- NOTE | 2020-01-22 23:00 | NUR ---
STILL SLEEPING COMFORTABLY IN BED, SNORING.
--- NOTE | 2020-01-22 23:24 | NUR ---
Called the following facilities; [facility] s/w Saniya no beds. Packet fax for wait list [facility] s/w Letty, no beds, packet fax for wait list [facility]w Maryann, no beds [facility] s/w Wendie, on saturation. Call in the AM for any discharges
--- NOTE | 2020-01-22 23:31 | NUR ---
[facility] s/w Li, no beds for tonight. Call in the AM for any discharges [facility] s/w Richard no beds for tonight. Call in the AM for any discharges
[2020-01-23] VITALS: BP 120/68
--- NOTE | 2020-01-23 | NUR ---
SLEEPING IN BED, VS STABLE.
--- NOTE | 2020-01-23 01:00 | NUR ---
WOKE UP, INSISTED TO SITTER HE IS GOING HOME, WANTS TO SPEAK WITH MOM. SECURITY CAME AND STAYED AT THE DOOR. PATIENT WENT BACK TO SLEEP AFTER VOIDING.
[2020-01-23] MEDS: NACL 0.9% 1,000 ML IV SCH (01:56)
--- NOTE | 2020-01-23 02:00 | NUR ---
WOKE UP, GOWN WET WITH PERSPIRATION. CHANGED GOWN, ADVISED TO GO BACK TO SLEEP. SNORING AFTER LAYING DOWN IN BED.
--- NOTE | 2020-01-23 02:30 | NUR ---
WOKE UP, STILL DROWSY. AMBULATED TO BR AND VOIDED. BACK TO BED, ADVISED TO GO BACK TO SLEEP. COOPERATIVE.
--- NOTE | 2020-01-23 02:35 | NUR ---
SLEEPING IN BED, SNORING. NO RESPIRATORY DISTRESS NOTED.
--- NOTE | 2020-01-23 04:00 | NUR ---
STILL SLEEPING COMFORTABLY IN BED. 1:1 SITTER MONITORING PATIENT NEAR DOOR.
--- NOTE | 2020-01-23 05:10 | NUR ---
GET OUT OF BED, AND WALK FAST OUT OF THE ROOM AND DID NOT LISTEN TO NURSE AND TAKE AWAY CN HANDS, UNCONTROLLABLE. CONTINUED WALKING IN THE HALLWAY. DONTE DIALED FOR CODE BAEZ. SECURITY AND ER STAFF ASSISTED PATIENT TO GO BACK TO THE ROOM AND SIT ON BED.
[2020-01-23] MEDS ORDERED: LORazepam 2 MG/ML VIAL IM/IVP SCH (05:15)
--- NOTE | 2020-01-23 05:15 | NUR ---
MEDICATED WITH ATIVAN 1 MG. IM PER MD ORDER. ADVISED PATIENT TO GO BACK TO SLEEP. COOPERATIVE.
[2020-01-23] MEDS: LORazepam 2 MG/ML VIAL IM/IVP PRN ×2 (05:20→12:58)
--- NOTE | 2020-01-23 05:33 | NUR ---
Still no bed at any of the designated facilities. Will endorse to incoming shift to continue to seek placement
--- NOTE | 2020-01-23 05:44 | NUR ---
REFUSED BLOOD TO BE DRAWN BY JINRIKISHA DRIVER FOR AM LAB TEST.
--- NOTE | 2020-01-23 06:38 | NUR ---
STILL SLEEPING COMFORTABLY, NEW SITTER MONITORING PATIENT NEAR DOOR.
--- NOTE | 2020-01-23 07:10 | NUR ---
SAFETY MAINTAINED DURING SHIFT. CONDITION REMAIN STABLE. ENDORSED TO AM NURSE FOR CONTINUITY OF CARE.
--- NOTE | 2020-01-23 07:22 | NUR ---
RECEIVED PATIENT FROM MAILER NURSE FOR CONTINUITY OF CARE. PATIENT IS SLEEPING AT THIS TIME. RESPIRATIONS EVEN AND UNLABORED, ROOM AIR. VISIBLE CHEST RISE NOTED.ON TELE MONITORING. ABDOMEN SOFT, ROUND, AND NONTENDER. SKIN WARM, DRY, AND INTACT. NO IV SITE. PER PM COMPUTER HELP DESK SPECIALIST, PATIENT REFUSED IV INSERTION. PATIENT IS AMBULATORY. . PATIENT IS FULL CODE. STANDARD. ISOLATION. REGULAR DIET. UNIVERSAL FALL PRECAUTIONS IN PLACE. 1:1 SITTER BY THE DOOR. BED IN LOW POSITION. CALL LIGHT IS WITHIN REACH. WILL CONTINUE TO MONITOR.
--- NOTE | 2020-01-23 07:44 | NUR ---
BEV FRANZ AND THE RESIDENT DOCTORS MADE ROUNDS
--- NOTE | 2020-01-23 07:52 | NUR ---
PATIENT IS OUT THE DOOR. SITTER IS WITH THE PATIENT. TOLD PATIENT TO GO BACK TO HIS ROOM. PATIENT IS COOPERATIVE
[2020-01-23 08:00] VITALS: BP 128/96
[2020-01-23] MEDS: OLANZapine 5 MG TAB PO SCH (08:50)
[2020-01-23] MEDS: DIVALPROEX 500 MG TABEC PO SCH (08:50)
--- NOTE | 2020-01-23 09:12 | NUR ---
Called the following facilities: [facility]w Laura, no beds but packet fax for transfer list [facility] s/w Harvey, no beds will be available today [facility] s/w Rocío no beds will be available today [facility] s/w Shannon chart pending review [facility] s/w Sammie no beds at this time [facility] s/w Chen, no beds as of this time but ask to fax packet for later review
--- NOTE | 2020-01-23 09:24 | NUR ---
DR. HODGES AT BEDSIDE.
--- NOTE | 2020-01-23 09:45 | NUR ---
PATIENT ESCAPED FROM THE UNIT
--- NOTE | 2020-01-23 09:49 | NUR ---
CALLED [employer] AND GIVEN DESCRIPTION OF THE PATIENT. OPERATED STATED POLICE OFFICERS ARE DISPATCHED. Addendum: 01/23/20 at 1036 by Princess Amanda Waldrop RN HOT KNIFE FOXING CUTTER
--- NOTE | 2020-01-23 10:21 | NUR ---
PATIENT IS BACK IN THE UNIT ACCOMPANIED BY THE PARAMEDICS. PATIENT STATED HE ENJOYED THE SUN OUTSIDE. PATIENT IS DRINKING APPLE AND ORANGE JUICE AT THIS TIME. NO SIGNS OF DISTRESS NOTED.
--- NOTE | 2020-01-23 10:35 | NUR ---
1:[address] PATIENT IS SITTING IN BED. NO SIGNS OF DISTRESS NOTED.
--- NOTE | 2020-01-23 11:17 | NUR ---
PATIENT IS SLEEPING AT THIS TIME. NO SIGNS OF DISTRESS NOTED. 1:[address] BED IN LOW POSITION. CALL LIGHT IS WITHIN REACH. WILL CONTINUE TO MONITOR.
--- NOTE | 2020-01-23 12:05 | NUR ---
PATIENT IS BRUSHING HIS TEETH AT THIS TIME.
--- NOTE | 2020-01-23 12:22 | NUR ---
HANG NEW IV BAG OF NS AT A RATE OF 60 ML/HR. PATIENT IS CURRENTLY EATING LUNCH AT THIS TIME. Addendum: 01/23/20 at 1237 by Princess Amanda Waldrop RN WRONG ENTRY. DISREGARD
--- NOTE | 2020-01-23 12:56 | NUR ---
LIVIA FROM [facility] REGARDING'S PATIENT [id number] HOLD.
--- NOTE | 2020-01-23 12:58 | NUR ---
GIVEN ATIVAN IM FOR AGITATION. PATIENT TOLERATED WELL. WILL CONTINUE TO MONITOR. 1:[address]
--- NOTE | 2020-01-23 13:12 | NUR ---
CALLED SECURITY PATIENT IS POUNDING ON THE CHAVEZ.
--- NOTE | 2020-01-23 13:30 | NUR ---
LIVIA CALLED AGAIN ([phone]) REGARDING PATIENT'S HALDOL AND COVID SCREENING.
--- NOTE | 2020-01-23 14:05 | NUR ---
PATIENT IS SLEEPING AT THIS TIME. NO SIGNS OF DISTRESS NOTED. BED IN LOW POSITION. CALL LIGHT IS WITHIN REACH.W WILL CONTINUE TO MONITOR
--- NOTE | 2020-01-23 14:59 | NUR ---
PATIENT IS AWAKE. 1:[address] NO SIGNS OF HALLUCINATIONS OR PSYCHOSES NOTED. WILL CONTINUE TO MONITOR
--- NOTE | 2020-01-23 15:09 | NUR ---
Contacted [facility], referral received and pending review.
--- NOTE | 2020-01-23 15:32 | NUR ---
PATIENT IS LAYING IN BED. TALKING TO HIMSELF. NO SIGNS OF DISTRESS NOTED. 1:[address] WILL CONTINUE TO MONITOR
--- NOTE | 2020-01-23 15:46 | NUR ---
GIVEN 2 CUPS OF PUDDING.
--- NOTE | 2020-01-23 16:10 | NUR ---
PATIENT ESCAPED AGAIN. WILL CALL [facility] AND [employer]
--- NOTE | 2020-01-23 16:14 | NUR ---
CALLED [facility] AND GIVEN DESCRIPTION OF THE PATIENT.
--- NOTE | 2020-01-23 16:31 | NUR ---
PATIENT IS BACK ACCOMPANIED BY 2 POLICE OFFICERS. PATIENT IS IN NO DISTRESS.
--- NOTE | 2020-01-23 16:49 | NUR ---
WYATT FROM [facility] CALLED. PATIENT IS ACCEPTED. HE WILL BE IN ROOM 1030A. ADDRESS IS [address] [place] [address], [facility] DR. BEE WILL BE THE ADMITTING DOCTOR. CALL BACK IS [phone]. CHARGE NURSE IS AWARE. WILL INFORM RESIDENT DOCTOR.
[2020-01-23 16:58] VITALS: BP 128/96
--- NOTE | 2020-01-23 17:15 | NUR ---
SET UP TRANSPORTATION THRU [facility], SPOKE WITH [facility] ETA WILL BE IN 60-75 MINS[address] BY [address]. EVANS. FAXED TO [facility], CONFIRMATION ATTACHED TO CHART. MALIK MADE AWARE.
--- NOTE | 2020-01-23 17:20 | NUR ---
GIVEN REPORT TO KAZ NESS, AT [facility]. NO FURTHER QUESTIONS. WILL LET HER KNOW ONCE JUNIOR BUSINESS ANALYST TIME IS ARRANGED.
--- NOTE | 2020-01-23 18:25 | NUR ---
GIVEN REPORT TO MUNA BEDOYA. GIVEN PACKET. ORIGINAL 5150 INCLUDED. PATIENT IS IN STABLE CONDITION.
--- NOTE | 2020-01-23 18:46 | NUR ---
CALLED THE MOM, RORY, REGARDING PATIENT'S BELONGINGS. SHE STATED THAT PATIENT LOST HIS WALLET, KEYS, AND PHONE BEFORE. MOM ALSO STATED THAT SHE DOES NOT WANT HIS SON TO BE IN [facility]. I EXPLAINED THAT THAT'S ONLY THE PLACE WHO HAS AVAILABLE BED. CHARGE NURSE IS AWARE. I ALSO GIVEN THE [facility]'S NUMBER AND RECEIVING DOCTOR'S NAME.
--- NOTE | 2020-01-23 19:36 | NUR ---
[facility] FORM FAXED TO [facility] REQUESTED, CONFIRMATION ATTACHED TO PT'S CHART.
[2020-01-23] MEDS ORDERED: traZODone 50 MG TAB PO SCH (21:00)
[2020-01-23] MEDS ORDERED: OLANZapine 5 MG TAB PO SCH (21:00)
== END 2020-01-23 18:25 | DRG 812 ==
LOC: MED 08:59 → MTU 09:19
PROVIDERS: ADMIT General Practice; ATTEND General Practice
DX: T40.7X1A Poisoning by cannabis (derivatives), accidental (unintentional), initial encounter (principal); G92 Toxic encephalopathy; F20.9 Schizophrenia, unspecified; E83.41 Hypermagnesemia; Z91.14 Patient's other noncompliance with medication regimen; F10.10 Alcohol abuse, uncomplicated; F31.9 Bipolar disorder, unspecified; F41.9 Anxiety disorder, unspecified; Y90.9 Presence of alcohol in blood, level not specified; Z83.3 Family history of diabetes mellitus; Z82.49 Family history of ischemic heart disease and other diseases of the circulatory system; Y92.89 Other specified places as the place of occurrence of the external cause
CPT/HCPCS: 36415; 80053; 80305; 81001; 83036; 83690; 83735; 84100; 84134; 84443; 85610; 85730; 99285; J1200; J1630; J2060; Q0177

== ENCOUNTER 2021-12-27 12:53 | Emergency (ER) | payer MEDICAID, OTHER ==
[~2021-12-27] VITALS: Ht 172.7 cm; Wt 126.1 kg
[~2021-12-27 12:53] MED LIST changes: -DEPER500 PO; +DIVA-58 PO; -OLAN10TA1 PO
[2021-12-27 13:12] VITALS: BP 146/52
--- NOTE | 2021-12-27 13:12 | NUR ---
PT TO AWAIT IN LOBBY
--- NOTE | 2021-12-27 13:57 | NUR ---
RAHEL DYE EXAMINING PT
[2021-12-27 14:16] VITALS: BP 146/52
== END 2021-12-27 14:16 | disposition home or self-care (01) ==
LOC: MED 12:53
DX: J02.9 Acute pharyngitis, unspecified (principal); R05.9 Cough, unspecified; F12.90 Cannabis use, unspecified, uncomplicated; Z79.899 Other long term (current) drug therapy
CPT/HCPCS: 81002; 99282

== ENCOUNTER 2021-12-30 18:40 | Emergency (ER) | payer OTHER ==
[~2021-12-30] VITALS: Ht 170.2 cm; Wt 99.8 kg
[2021-12-30 18:40] VITALS: BP 136/95
--- NOTE | 2021-12-30 18:40 | NUR ---
31 Y/O MALE BIBA FOR BEHAVIRAL PROBLEMS PER EMS PT NOT SLEEPING FOR THE PAST 5 DAYS NKDA DENIES HISTORY, DENIES MEDS
--- NOTE | 2021-12-30 18:56 | NUR ---
DR CRUZ AT BEDSIDE EVALUATING PT.
--- NOTE | 2021-12-30 19:18 | NUR ---
CONTINUOUS DRIER OPERATOR AT BEDSIDE
--- NOTE | 2021-12-30 19:26 | NUR ---
REPORT RECEIVED FROM KAZ HUNTER. CONTINUITY OF PT CARE AT THIS TIME.
--- NOTE | 2021-12-30 19:26 | NUR ---
REPORT RECEIVED FROM KAZ HUNTER. CONTINUITY OF PT CARE AT THIS TIME.
--- NOTE | 2021-12-30 19:31 | NUR ---
Pt report given to KAZ SIERRA. Transfer of care at this time.
[2021-12-30 19:38] LABS: BASOPHILS % (AUTO) 0.5 % (0.0-2.0); EOSINOPHILS # (AUTO) 0.1 K/uL (0-0.4); EOSINOPHILS % (AUTO) 1.5 % (0.0-4.0); HEMATOCRIT 44.4 % (36-52); HEMOGLOBIN 14.9 g/dL (12.0-18.0); LYMPHOCYTES # (AUTO) 1.9 K/uL (2.0-11.5); LYMPHOCYTES % (AUTO) 24.8 % (20.5-51.1); MEAN CORPUSCULAR HEMOGLOBIN 30 pg (27-31); MEAN CORPUSCULAR HGB CONC 34 g/dL (33-37); MEAN CORPUSCULAR VOLUME 90.2 fL (80-94); MONOCYTES # (AUTO) 0.8 K/uL (0.8-1.0); NEUTROPHILS # (AUTO) 4.7 K/uL (1.8-7.7); NEUTROPHILS % (AUTO) 63.2 % (42.2-75.2); PLATELET COUNT (AUTO) 250 K/uL (140-450); RED BLOOD CELL COUNT(AUTO) 4.92 MIL/uL (4.20-6.10); RED CELL DISTRIBUTION WIDTH 13.8 % (11.6-13.7); WHITE BLOOD COUNT (AUTO) 7.5 K/uL (4.8-10.8)
--- NOTE | 2021-12-30 19:56 | NUR ---
PT SITTING IN CHAIR AT BEDSIDE. PT GAVE NAME, DENIES ANY PAIN OR SYMPTOMS. PT DOES NOT ANSWER QUESTIONS. PT UNABLE TO PROVIDE URINE AT THIS TIME, DOES NOT WANT ANYTHING TO DRINK. VSS.
--- NOTE | 2021-12-30 19:56 | NUR ---
CHRIS SAMPLE COLLECTED FROM PT NARES AND SENT TO LAB.
[2021-12-30 19:57] LABS: ALBUMIN 4.5 g/dL (3.4-5.0); ASPARTATE AMINOTRANSFERASE 22 U/L (15-37); CHLORIDE 101 mmol/L (98-107); CREATININE 1.2 mg/dL (0.6-1.3); GFR ARICAN-AMERICAN 90 mL/min (>90); GLUCOSE 101 mg/dL (74-106); SODIUM SERUM 139 mmol/L (136-145); TOTAL BILIRUBIN 0.7 mg/dL (0.0-1.0); UREA NITROGEN, BLOOD 12 mg/dL (7-18)
[2021-12-30 20:01] LABS: ACETAMINOPHEN < 0.5 ug/ml (10-30); SALICYLATE < 2.8 mg/dL (2.8-20.0)
[2021-12-30 20:11] VITALS: BP 154/88
--- NOTE | 2021-12-30 20:11 | NUR ---
PATIENT ELOPED FROM FACILITY. DISCHARGE INSTRUCTIONS NOT GIVEN TO PATIENT. DR. CRUZ NOTIFIED. NO NEW ORDERS.
== END 2021-12-30 20:11 | disposition left against medical advice (07) ==
LOC: MED 18:40
DX: F31.9 Bipolar disorder, unspecified (principal); F20.9 Schizophrenia, unspecified; Z20.822 Contact with and (suspected) exposure to COVID-19; R45.1 Restlessness and agitation; Z79.899 Other long term (current) drug therapy
CPT/HCPCS: 36415; 80053; 84484; 85025; 87426; 99283; G0480; G0482

== ENCOUNTER 2023-12-29 01:55 | Emergency (ER) | payer OTHER ==
[~2023-12-29] VITALS: Ht 177.8 cm; Wt 106.6 kg
[2023-12-29 02:03] VITALS: BP 127/77; PULSE 100; RESP 20; TEMP 98.2; O2SAT 97
[2023-12-29 03:11] VITALS: BP 127/77; PULSE 100; RESP 20; TEMP 98.2; O2SAT 97
== END 2023-12-29 03:11 ==
LOC: MED 01:55
DX: H10.213 Acute toxic conjunctivitis, bilateral (principal); T59.3X3A Toxic effect of lacrimogenic gas, assault, initial encounter; Y08.89XA Assault by other specified means, initial encounter; Y93.89 Activity, other specified; Y92.89 Other specified places as the place of occurrence of the external cause; Y99.8 Other external cause status
CPT/HCPCS: 99283